=== PATIENT | male | born 1970 | race Hispanic/Latino ===

== ENCOUNTER 2019-10-24 22:10 | Emergency (ER) | payer SELFPAY ==
[2019-10-24] MEDS ORDERED: Adacel (T-DAP) 0.5 ML SYRINGE ONE (22:17)
--- NOTE | 2019-10-24 23:00 | CT ---
CT HEAD WITHOUT IV CONTRAST COMPARISON: None HISTORY: Trauma. TECHNIQUE: Axial CT imaging at 5 mm intervals from vertex through skull base without contrast FINDINGS: There is no evidence of an acute infarction, hemorrhage, mass effect, or midline shift. The ventricul ar system is normal in size, shape, and position. Mucosal thickening is seen in each maxillary antrum. Osseous structures appear intact.No depressed calvarial fracture is seen. A round metallic density is seen in the scalp soft tissues anterior frontal region related to metallic foreign body. There is mild supraorbital scalp soft tissue swelling. There is also evidence of left anterior facial subcutan eous soft tissue swelling at the level of the anterior maxillary wall. IMPRESSION: 1. No acute intracranial abnormality demonstrated. 2. Metallic foreign body (BB on the anterior frontal scalp soft tissues. 3. Minimal right supraorbital scalp soft tissue swelling as well as prominent soft tissue swelling an terior to the left maxilla.
--- NOTE | 2019-10-24 23:05 | RAD ---
Exam: XR Shoulder Rt 3 View STANDARD HISTORY: Right shoulder deformity. COMPARISON: None FINDINGS: There is evidence of a right anterior shoulder dislocation with the humeral head dislocated anteriorl y and medially. Left glenohumeral osteoarthropathy is present. 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 No obvious fracture is seen. IMPRESSION: Right anterior shoulder dislocation.
--- NOTE | 2019-10-24 23:07 | CT ---
EXAM: CT cervical spine PROVIDED CLINICAL HISTORY: Trauma. TECHNIQUE: Contiguous axial CT images are obtained through the cervical spine from the skull base to the T3 leve l. Sagittal and coronal reformatted images are provided. COMPARISON: None FINDINGS: No evidence for fracture or traumatic subluxation. Scattered degenerative changes are seen in the cer vical spine No prevertebral soft tissue swelling apparent. Visualized lung apices appear clear. Visualized thyroid gland demonstrates a grossly normal nonenhanced CT appearance. There is prominent subcutaneous soft tissue swelling seen in a left infraorbital location and anterio r to the left maxilla as well as adjacent to the left mandible. Mucosal thickening in the bilateral maxillary antra. [employer] image demonstrates medial dislocation the right humeral head likely to anterior shoulder disloc ation. Correlation with views right shoulder are recommended. IMPRESSION: 1. No evidence for fracture or traumatic subluxation cervical spine. 2. Prominent subcutaneous soft tissue swelling anterior to the level of the left maxilla and adjacent to the left mandible. 3. Findings suggestive of a right anterior shoulder dislocation. Views right shoulder are recommended .
[2019-10-24 23:18] LABS: Hemoglobin 15.1 g/dL (14.0-18.0); Mean Corpuscular HGB CONC 32.8 g/dL (32.0-36.0); Mean Corpuscular Hemoglobin 30.5 pg (27.0-31.0); Platelet Count 317 thou/uL (130-400); RBC Distribution Width 12.1 % (11.5-14.5); Red Blood Cell (RBC) Count 4.95 mill/uL (4.70-6.10); White Blood Cell (WBC) Count 24.6 thou/uL (4.8-10.8)
[2019-10-24 23:26] LABS: INR-International Normal Ratio 0.9; Prothrombin Time 12.3 sec (12.0-14.7)
[2019-10-24 23:30] LABS: Band 7 % (5-11); Lymphocytes 5 % (21-51); MDiff Complete? YES; Monocytes 6 % (0-10); Neutrophil 80 % (42-75); Platelet Morphology Comment Appears Adequate; RBC Morphology Normal; Reactive Lymphocytes 2 % (0-10)
[2019-10-24 23:35] LABS: Acetaminophen Less than 6.0 mcg/mL (10.0-30.0); Alcohol 163 mg/dL (Less than 10); Salicylate Less than 8.0 mg/dL (15.0-30.0)
[2019-10-24 23:37] LABS: ALT (SGPT) 27 U/L (8-55); AST (SGOT) 22 U/L (5-34); Albumin 4.8 g/dL (3.5-5.0); Alkaline Phosphatase 71 U/L (40-110); Anion Gap 20 mmol/L (10-20); BUN (Urea Nitrogen) 19 mg/dL (8.9-20.6); Bilirubin, Total 0.3 mg/dL (0.2-1.2); Calc. Creatinine Clearance 0 mL/min (70-130); Calcium 8.8 mg/dL (7.8-10.44); Carbon Dioxide 19 mmol/L (22-29); Chloride 105 mmol/L (98-107); Estimated GFR-MDRD Greater than 90; Globulin 3.3 g/dL (2.4-3.5); Glucose 127 mg/dL (70-105); Potassium 3.7 mmol/L (3.5-5.1); Protein, Total 8.1 g/dL (6.0-8.3); Sodium 140 mmol/L (136-145)
[2019-10-24] MEDS ORDERED: Morphine 4 MG/ML VIAL ONE (23:40)
[2019-10-24] MEDS ORDERED: Sodium Chloride 0.9% 1,000 ML ONE (23:54)
[2019-10-24] MEDS ORDERED: Ketamine 50 MG/ML (10ML VIAL) ONE (23:54)
[2019-10-25] MEDS ORDERED: Lidocaine 1% w/Epinephrine 1:100K 20 ML VIAL ONE (01:00)
--- NOTE | 2019-10-25 07:35 | RAD ---
XR Shoulder Rt 2 View History: Postreduction Comparison: Radiograph prior day Findings: Continued anterior subcoracoid right shoulder dislocation. Ribs are intact. Impression: Continued right shoulder anterior subcoracoid dislocation.
--- NOTE | 2019-10-25 07:38 | RAD ---
XR Shoulder Rt 2 View History: Post reduction Comparison: Radiograph same day Findings: Satisfactory positioning of the right shoulder which is no longer dislocated. Impression: Satisfactory right glenohumeral alignment.
== END 2019-10-25 01:42 ==
LOC: MADERS 22:10
DX: S43.004A Unspecified dislocation of right shoulder joint, initial encounter (principal); S01.01XA Laceration without foreign body of scalp, initial encounter; F10.129 Alcohol abuse with intoxication, unspecified; Y04.2XXA Assault by strike against or bumped into by another person, initial encounter
CPT/HCPCS: 12002; 23650; 70450; 72125; 80053; 80307; 85025; 85610; 90471; 90715; 96361; 96374; 99152; 99153; J2270; J7050